=== PATIENT | female | born 1955 | race Caucasian/White ===

== ENCOUNTER 2016-12-04 09:51 | Emergency (ER) | payer OTHER ==
[~2016-12-04] VITALS: Ht 154.9 cm; Wt 132.4 kg
[~2016-12-04 09:51] MED LIST: ADVAIR HFA 230/1 AER INH; ALAVERT10 MG PO; B/P; CETIRIZINE HCL10 MG PO; CIPRO500 MG PO; CITALOPRAM20 MG PO; CLARITIN10 MG PO; DELTASONE10 MG PO; DOXYCYCLINE100 M3 PO; Flovent 220 M220 MCG INH; GLUCOPHAGE1000 MG PO; HUMULIN 70/30 703 M1 SC; HYDROCODONE BIT1 T11 PO; INSULIN; LANTUS100 U/ML SC; LASIX40 MG PO; LEVAQUIN750 M1 PO; LEVOTHROID0.1 MG PO; LEVOTHYROXINE; LEVOTHYROXINE0.15 M1 PO; LISINOPRIL20 MG PO; METFORMIN HCL500 M1 PO; MUCINEX DM 30 M1 TE1 PO; MUCINEX DM 30 M1 TER PO; NORCO 325 MG-51 TAB PO; NOVOLIN 701 UNIT/0.0 SC; PREDNISONE50 MG PO; ROCEPHIN1 GM/50 M1 IV; SIMVASTATIN40 MG PO; VENTOLIN H0.09 MG/AC INH; VICODIN 5/500 505 MG PO; VITAMIN D5000 I3 PO; VITAMIN D50000 I2 PO
[2016-12-04 09:58] VITALS: BP 135/75
[2016-12-04 10:20] LABS: BILIRUBIN NEGATIVE (NEGATIVE); BLOOD 1+ (NEGATIVE); CLARITY CLOUDY (CLEAR); COLOR YELLOW (YELLOW); GLUCOSE NEGATIVE (NEGATIVE); KETONE NEGATIVE (NEGATIVE); NITRITE POSITIVE (NEGATIVE); PH 5.5 (5.0-9.0); PROTEIN NEGATIVE (NEGATIVE); UROBILINOGEN 0.2 E.U./dl (0.2-1.0)
[2016-12-04 10:32] LABS: LEUKO ESTERASE 3+ (NEGATIVE)
[2016-12-04 10:33] LABS: BACTERIA 3+; EPITHELIAL CELLS 15-20; URINE REFLEX COMMENT YES (NO); WBC 41-50 wbc/hpf (0-5)
[2016-12-04 10:53] LABS: BASO % 0.3 % (0.0-1.0); EOS # 0.2 10*3/uL (0.0-0.4); EOS % 2.3 % (1.0-4.0); HEMATOCRIT 41.3 % (37.0-47.0); HEMOGLOBIN 13.5 g/dl (12.0-16.0); LYMPH # 2.6 10*3/uL (1.3-4.4); LYMPH % 33.3 % (27.0-41.0); MEAN CORPUSCULAR HGB 28.1 pg (27.0-31.0); MEAN CORPUSCULAR HGB CONC 32.7 g/dl (33.0-37.0); MEAN PLATELET VOLUME 10.4 fl (9.6-12.3); MONO # 1.1 10*3/uL (0.1-1.0); MONO % 13.3 % (3.0-9.0); NEUT % 50.7 % (47.0-73.0); PLATELET COUNT AUTOMATED 225 10*3/uL (130-400); RED CELL DISTRI WIDTH 13.3 % (0-14.5); WHITE BLOOD COUNT 7.9 10*3/uL (4.8-10.8)
[2016-12-04 11:07] LABS: ALBUMIN 3.2 gm/dl (3.1-4.5); BILIRUBIN, TOTAL 0.5 mg/dl (0.2-1.0); POTASSIUM 4.5 mmol/L (3.5-5.1); TOTAL PROTEIN 7.4 gm/dL (6.4-8.2)
[2016-12-04] MEDS ORDERED: MIRALAX17 GM PO (12:31)
[2016-12-04] MEDS ORDERED: RELISTOR150 MG PO (12:31)
[2016-12-04] MEDS ORDERED: CITRATE OF1.75 GM/31 PO (12:54)
[2017-01-26] MEDS ORDERED: MACROBID100 M1 PO (23:11)
[2017-01-26] MEDS ORDERED: PYRIDIUM200 M1 PO (23:15)
== END 2016-12-04 12:35 | disposition home or self-care (01) ==
LOC: ED 09:51
PROVIDERS: Emergency Medicine; Student in an Organized Health Care Education/Training Program
DX: N39.0 Urinary tract infection, site not specified (principal); K59.00 Constipation, unspecified; N18.3 Chronic kidney disease, stage 3 (moderate); J44.9 Chronic obstructive pulmonary disease, unspecified; E11.9 Type 2 diabetes mellitus without complications; Z88.0 Allergy status to penicillin

== ENCOUNTER 2017-06-24 22:09 | Emergency (ER) | payer OTHER ==
[~2017-06-24] VITALS: Ht 154.9 cm; Wt 81.6 kg
[~2017-06-24 22:09] MED LIST changes: +CITRATE OF1.75 GM/31 PO; +MACROBID100 M1 PO; +MIRALAX17 GM PO; +PYRIDIUM200 M1 PO; +RELISTOR150 MG PO; +VICODIN 5-3001 EACH PO
[2017-06-24 22:12] VITALS: BP 155/71
== END 2017-06-25 02:27 | disposition home or self-care (01) ==
LOC: ED 22:09
DX: S93.402A Sprain of unspecified ligament of left ankle, initial encounter (principal); M77.52 Other enthesopathy of left foot and ankle; E11.22 Type 2 diabetes mellitus with diabetic chronic kidney disease; N18.3 Chronic kidney disease, stage 3 (moderate); J44.9 Chronic obstructive pulmonary disease, unspecified; Z88.0 Allergy status to penicillin; Z79.899 Other long term (current) drug therapy; X58.XXXA Exposure to other specified factors, initial encounter; Y93.E5 Activity, floor mopping and cleaning; Y92.009 Unspecified place in unspecified non-institutional (private) residence as the place of occurrence of the external cause; Y99.8 Other external cause status

== ENCOUNTER → 2017-09-11 | Outpatient (CLI) | payer OTHER | END | disposition home or self-care (01) | LOC: MAMMO 03:05 | DX: Z12.31 Encounter for screening mammogram for malignant neoplasm of breast (principal) ==

== ENCOUNTER → 2017-10-02 | Outpatient (CLI) | payer OTHER | LOC: MAMMO 00:43 | DX: N63.21 Unspecified lump in the left breast, upper outer quadrant (principal) ==

== ENCOUNTER 2018-08-07 20:18 | Emergency (ER) | payer OTHER ==
[~2018-08-07] VITALS: Ht 154.9 cm; Wt 122.9 kg
[2018-08-07 20:21] VITALS: BP 154/65
[2018-08-07] MEDS ORDERED: Motrin,Rufen800 MG PO (22:17)
== END 2018-08-07 22:19 | disposition home or self-care (01) ==
LOC: ED 20:18
DX: M25.562 Pain in left knee (principal); M17.12 Unilateral primary osteoarthritis, left knee; F17.200 Nicotine dependence, unspecified, uncomplicated; Z88.0 Allergy status to penicillin; Z79.899 Other long term (current) drug therapy

== ENCOUNTER 2018-12-15 07:11 | Emergency (ER) | payer OTHER ==
[~2018-12-15] VITALS: Ht 154.9 cm; Wt 123.4 kg
[~2018-12-15 07:11] MED LIST changes: +Motrin,Rufen800 MG PO
[2018-12-15 07:40] LABS: BASO % 0.2 % (0.0-1.0); EOS # 0.2 10*3/uL (0.0-0.4); HEMATOCRIT 46.4 % (37.0-47.0); HEMOGLOBIN 14.9 g/dl (12.0-16.0); LYMPH % 33.5 % (27.0-41.0); MEAN CELL VOLUME 86.2 fl (81.0-99.0); MEAN CORPUSCULAR HGB 27.7 pg (27.0-31.0); MEAN CORPUSCULAR HGB CONC 32.1 g/dl (33.0-37.0); MONO # 1.1 10*3/uL (0.1-1.0); MONO % 11.7 % (3.0-9.0); NEUT # 4.7 10*3/uL (2.3-7.9); NEUT % 52.3 % (47.0-73.0); PLATELET COUNT AUTOMATED 224 10*3/uL (130-400); RED BLOOD COUNT 5.38 10*6/uL (4.10-5.10); RED CELL DISTRI WIDTH 14.1 % (0-14.5)
[2018-12-15 07:54] LABS: ALBUMIN 3.3 gm/dl (3.1-4.5); CREATININE 1.67 mg/dL (0.55-1.02); POTASSIUM 4.9 mmol/L (3.5-5.1); TOTAL PROTEIN 7.8 gm/dL (6.4-8.2)
[2018-12-15 09:30] VITALS: BP 138/60
== END 2018-12-15 09:24 | disposition home or self-care (01) ==
LOC: ED 07:11
PROVIDERS: Emergency Medicine
DX: S89.91XA Unspecified injury of right lower leg, initial encounter (principal); M47.896 Other spondylosis, lumbar region; I12.9 Hypertensive chronic kidney disease with stage 1 through stage 4 chronic kidney disease, or unspecified chronic kidney disease; E11.22 Type 2 diabetes mellitus with diabetic chronic kidney disease; N18.3 Chronic kidney disease, stage 3 (moderate); J44.9 Chronic obstructive pulmonary disease, unspecified; M19.90 Unspecified osteoarthritis, unspecified site; Z88.0 Allergy status to penicillin; Z79.899 Other long term (current) drug therapy; X50.1XXA Overexertion from prolonged static or awkward postures, initial encounter; Y93.89 Activity, other specified; Y92.89 Other specified places as the place of occurrence of the external cause; Y99.8 Other external cause status

== ENCOUNTER → 2019-01-21 | Outpatient (CLI) | payer OTHER | END | disposition home or self-care (01) | LOC: CT 01-16 14:00 | DX: M17.11 Unilateral primary osteoarthritis, right knee (principal) ==

== ENCOUNTER 2019-12-24 07:08 | Inpatient (IN) | payer OTHER ==
[2019-12-24] VITALS (7 sets, daily range): BP systolic 130–163; BP diastolic 77–95
[~2019-12-24] VITALS: Ht 154.9 cm; Wt 123.8 kg
[2019-12-24 07:43] LABS: BASO % 0.3 % (0.0-1.0); EOS # 0.2 10*3/uL (0.0-0.4); EOS % 1.9 % (1.0-4.0); HEMATOCRIT 44.1 % (37.0-47.0); HEMOGLOBIN 13.3 g/dl (12.0-16.0); LYMPH # 2.7 10*3/uL (1.3-4.4); LYMPH % 22.9 % (27.0-41.0); MEAN CELL VOLUME 86.3 fl (81.0-99.0); MEAN CORPUSCULAR HGB CONC 30.2 g/dl (33.0-37.0); MEAN PLATELET VOLUME 12.5 fl (9.6-12.3); MONO # 0.9 10*3/uL (0.1-1.0); MONO % 7.8 % (3.0-9.0); NEUT % 66.8 % (47.0-73.0); PLATELET COUNT AUTOMATED 236 10*3/uL (130-400); RED BLOOD COUNT 5.11 10*6/uL (4.10-5.10); RED CELL DISTRI WIDTH 14.2 % (0-14.5)
--- NOTE | 2019-12-24 07:59 | NUR ---
RESTIGN IN BED QUIETLY. APPEARS MORE COMFORTABLE. BROTHER PRESENT.
[2019-12-24 08:42] LABS: ACT PARTIAL THROMBO TIME 26.2 SECONDS (20.0-32.1); INTERNATIONAL NORM RATIO 1.1 (2.0-3.5)
--- NOTE | 2019-12-24 08:47 | NUR ---
LYING IN BED SEMI FOWLERS, RESPS EASY. NON LABORED. EYES CLOSED.
[2019-12-24 08:54] LABS: ALBUMIN 2.9 gm/dl (3.1-4.5); ALKALINE PHOSPHATASE 83 U/L (45-117); BUN 16 mg/dl (7-24); CHLORIDE 99 mmol/L (98-107); CREATININE 1.08 mg/dL (0.55-1.02); POTASSIUM 4.2 mmol/L (3.5-5.1); SGOT/AST 13 IU/L (3-35); SGPT/ALT 18 U/L (12-78); SODIUM 138 mmol/L (136-145)
--- NOTE | 2019-12-24 09:12 | NUR ---
COMPLAINS OF CHEST TIGHTNESS, EKG ORDERED, DR SELLERS AWARE.
[2019-12-24 09:25] LABS: TROPONIN I < 0.015 ng/ml (<0.045)
--- NOTE | 2019-12-24 09:51 | NUR ---
PT TO CT AT THIS TIME.
[2019-12-24 10:15] LABS: THYROID STIM HORMONE (HS) 3.67 uIU/ml (0.358-4.75)
--- NOTE | 2019-12-24 10:59 | NUR ---
TO US AT THIS TIME.
--- NOTE | 2019-12-24 11:44 | NUR ---
BACK TO ROOM FROM US
--- NOTE | 2019-12-24 12:00 | NUR ---
Time: 1200 A 64 year old FEMALE admitted to 4E under services of DR. ALINE KIRKLAND,HELEN. Pt. arrived via wheel chair from ER. Chief complaint: SOB, CHF. HELEN OSBORNE
[2019-12-24] MEDS ORDERED: LISINOPRIL20 MG PO (13:20)
[2019-12-24] MEDS ORDERED: ALBUTEROL S5 MG/1 ML IH (13:21)
[2019-12-24] MEDS ORDERED: LASIX40 MG PO (13:23)
[2019-12-24] MEDS ORDERED: DOXEPIN HCL10 MG PO (13:23)
--- NOTE | 2019-12-24 20:00 | NUR ---
PT SITTING UP ON SIDE OF BED, A&O, PLEASANT AND COOPERATIVE. RESP NONLABORED. NO ACUTE DISTRESS NOTED. NO COMLAINTS VOICED. HEPLOCK PATENT. NO S/S OF HYPU/HYPERGLYCEMIA NOTED.
[2019-12-25] VITALS: BP 160/89
[2019-12-25 06:02] LABS: BASO % 0.1 % (0.0-1.0); EOS # 0.2 10*3/uL (0.0-0.4); HEMOGLOBIN 13.8 g/dl (12.0-16.0); LYMPH # 1.3 10*3/uL (1.3-4.4); LYMPH % 13.1 % (27.0-41.0); MEAN CORPUSCULAR HGB 25.8 pg (27.0-31.0); MEAN PLATELET VOLUME 11.1 fl (9.6-12.3); MONO # 0.3 10*3/uL (0.1-1.0); MONO % 3.1 % (3.0-9.0); NEUT # 7.8 10*3/uL (2.3-7.9); NEUT % 81.4 % (47.0-73.0); PLATELET COUNT AUTOMATED 203 10*3/uL (130-400); RED BLOOD COUNT 5.35 10*6/uL (4.10-5.10); RED CELL DISTRI WIDTH 13.9 % (0-14.5); WHITE BLOOD COUNT 9.6 10*3/uL (4.8-10.8)
[2019-12-25 06:08] LABS: ALBUMIN 2.9 gm/dl (3.1-4.5); CREATININE 1.23 mg/dL (0.55-1.02); FREE T4 0.96 ng/dl (0.76-1.46); PHOSPHOROUS 4.2 mg/dL (2.5-4.9); POTASSIUM 4.5 mmol/L (3.5-5.1); TOTAL PROTEIN 7.4 gm/dL (6.4-8.2)
[2019-12-25 06:12] LABS: THYROID STIM HORMONE (HS) 1.01 uIU/ml (0.358-4.75)
[2019-12-25 06:34] LABS: ACT PARTIAL THROMBO TIME 26.5 SECONDS (20.0-32.1)
--- NOTE | 2019-12-25 07:58 | NUR ---
TYLENOL GIVEN FOR C/O HEADACHE. RATES 10/10 ON PAIN SCALE. WILL MONITOR.
[2019-12-25 08:00] VITALS: BP 148/86
--- NOTE | 2019-12-25 08:30 | NUR ---
Metal Model Builder in to talk to patient. Patient states lives at home with her daughter. There are 5 steps in the home. Physician: Dr. Bower [facility] Home health services: none Patient's level of ADLs: INDEPENDENT Patient has working utilities: yes DME: O2 @ 2-3 L nc at HS, wants a neb nebulizer (Dr. Santoro notified), O2 supplier unknown Follow-up physician's appointment after d/c: she prefers to make her own follow up appt after discharge Does patient want to access PORTAL?: no Discharge plan discussed with patient. She lives at home with her daughter. She is independent in her ADLs and ambulation. Discussed home health care services and she denies any home needs at this time. When medically stable she will be discharged to home. She states her brother or her daughter will provide transportation on discharge. GABBIE DUNNE
--- NOTE | 2019-12-25 09:00 | NUR ---
TYLENOL EFFECTIVE PER PT.
--- NOTE | 2019-12-25 10:12 | NUR ---
ONE TIME DOSE OF ATIVAN TO BE GIVEN BEFORE V-Q SCAN
[2019-12-25 12:00] VITALS: BP 126/46
[2019-12-25 16:00] VITALS: BP 149/78
[2019-12-25 20:00] VITALS: BP 157/81
--- NOTE | 2019-12-25 20:30 | NUR ---
PT SITTING UP AT SIDE OF BED. RESP-EASY AND REGULAR. OXYGEN IN USE. NO C/O AT THIS TIME. DISCOLORATION BLE. CALL LIGHT IN REACH. SEE SHIFT ASSESSMENT.
--- NOTE | 2019-12-25 23:00 | NUR ---
ASSUMED CARE FOR THIS PT AT THIS TIME. PT SITTING ON SIDE OF BED. PT C/O BEING HUNGRY. SNACKS OFFERED AND ACCEPTED. DENIES SOB/PAIN. CALL LIGHT IN REACH.
[2019-12-26] VITALS: BP 156/76
[2019-12-26 07:22] LABS: BASO % 0.1 % (0.0-1.0); EOS % 0.1 % (1.0-4.0); HEMATOCRIT 44.7 % (37.0-47.0); HEMOGLOBIN 13.2 g/dl (12.0-16.0); LYMPH # 2.6 10*3/uL (1.3-4.4); LYMPH % 17.2 % (27.0-41.0); MEAN CELL VOLUME 86.3 fl (81.0-99.0); MEAN CORPUSCULAR HGB 25.5 pg (27.0-31.0); MEAN CORPUSCULAR HGB CONC 29.5 g/dl (33.0-37.0); MEAN PLATELET VOLUME 11.5 fl (9.6-12.3); MONO # 1.2 10*3/uL (0.1-1.0); MONO % 7.7 % (3.0-9.0); NEUT # 11.2 10*3/uL (2.3-7.9); NEUT % 74.5 % (47.0-73.0); PLATELET COUNT AUTOMATED 213 10*3/uL (130-400); RED BLOOD COUNT 5.18 10*6/uL (4.10-5.10); RED CELL DISTRI WIDTH 13.6 % (0-14.5)
[2019-12-26 07:29] LABS: ACT PARTIAL THROMBO TIME 25.6 SECONDS (20.0-32.1)
[2019-12-26 07:32] LABS: CREATININE 1.4 mg/dL (0.55-1.02); POTASSIUM 4.5 mmol/L (3.5-5.1)
[2019-12-26 08:00] VITALS: BP 159/79
[2019-12-26 11:02] LABS: ABG BASE EXCESS 10.1 mmol/L (-2.0-2.0); ARTERIAL BLOOD GAS PH 7.317 (7.35-7.45)
--- NOTE | 2019-12-26 11:29 | NUR ---
DR. ALEXANDER NOTIFIED OF CONSULT.
[2019-12-26 12:00] VITALS: BP 132/96
[2019-12-26 14:12] LABS: ABG BASE EXCESS 10.3 mmol/L (-2.0-2.0); ARTERIAL BLOOD GAS PH 7.37 (7.35-7.45)
[2019-12-26 16:00] VITALS: BP 129/48
--- NOTE | 2019-12-26 19:40 | NUR ---
TOOK OVER CARE OF PT. PT SITTING UP ON SIDE OF BED. ALERT ORIENTED AND PLEASANT MOOD. ASSESSMENT IS COMPLETE AT THIS TIME. RESPIRATIONS UNLABORED. NO S/S OF DISTRESS. CALL LIGHT IN REACH.
[2019-12-26 20:00] VITALS: BP 121/95
[2019-12-26 23:17] VITALS: BP 142/70
--- NOTE | 2019-12-26 23:44 | NUR ---
SHAUNNAX GIVEN PER PT REQUEST FOR C/O ANXIETY. CALL LIGHT IN REACH.
[2019-12-27] VITALS: BP 113/70
--- NOTE | 2019-12-27 00:44 | NUR ---
XANAX EFFECTIVE PER PT.
[2019-12-27 05:50] LABS: CREATININE 1.51 mg/dL (0.55-1.02); POTASSIUM 4.9 mmol/L (3.5-5.1)
--- NOTE | 2019-12-27 06:15 | NUR ---
Hep Lock discontinued, RICARDO. Site symptomatic, OCCLUDED. Pressure applied. Sterile dressing applied. STEPHON DECKER
--- NOTE | 2019-12-27 06:20 | NUR ---
IV started right arm with #22 protective cath after 0 attempts. Site prepped with Chloroprep. Sterile dressing applied. Patient tolerated procedure well. STEPHON DECKER
--- NOTE | 2019-12-27 06:50 | NUR ---
PT AWAKE, ALERT. PLEASANT MOOD. BLOOD SUGAR 331, PT COVERED WITH 15 UNITS PER S/S ON EMAR. WILL CONTINUE TO MONITOR. CALL LIGHT IN REACH.
[2019-12-27 08:00] VITALS: BP 130/69
--- NOTE | 2019-12-27 08:12 | NUR ---
PT RESTING IN BED/ NO DISTRESS NOTED. NO VOICED C/O. WILL MONITOR
[2019-12-27 12:00] VITALS: BP 146/62
--- NOTE | 2019-12-27 13:19 | NUR ---
PT REQUESTED AND GIVEN TYLENOL FOR C/O HEADACHE WILL MONITOR
--- NOTE | 2019-12-27 15:00 | NUR ---
PT STATES TYLENOL HELPED WILL MONITOR
[2019-12-27 16:00] VITALS: BP 146/55
[2019-12-27 20:00] VITALS: BP 147/60
--- NOTE | 2019-12-27 22:39 | NUR ---
PRN XANAX GIVEN FOR PT COMPLAINTS OF ANXIETY GOING ON BIPAP. CALL LIGHT WITHIN REACH, WILL MONITOR
[2019-12-28] VITALS: BP 154/76
--- NOTE | 2019-12-28 | NUR ---
PRN MEDICATION APPEARS EFFECTIVE, PT SLEEPING
--- NOTE | 2019-12-28 01:39 | NUR ---
24 HR chart check completed.
--- NOTE | 2019-12-28 02:35 | NUR ---
PATIENT UP AT THIS TIME. OFF THE BIPAP. STATED SHE HAD A BAD DREAM THAT SHE COULDN'T BREATH AND THEN WHEN SHE WOKE UP SHE STARTED COUGHING AND COULDN'T GET IT UP BECAUSE OF THE BIPAP. PATIENT REMOVED OFF BIPAP AND PLACED BACK ON NASAL CANNULA. SHE STATED SHE'LL CALL WHEN SHE WANTS TO GO BACK ON.
--- NOTE | 2019-12-28 02:56 | NUR ---
PATIENT BACK ON BIPAP AT THIS TIME
[2019-12-28 07:44] LABS: ABG BASE EXCESS 4.9 mmol/L (-2.0-2.0); ARTERIAL BLOOD GAS PH 7.322 (7.35-7.45)
[2019-12-28 08:00] VITALS: BP 156/68
--- NOTE | 2019-12-28 08:40 | NUR ---
DR ALEXANDER NOTIFIED OF GS
--- NOTE | 2019-12-28 08:47 | NUR ---
PT RESTING IN BED. NO DISTRESS NOTED. WILL MONITOR
--- NOTE | 2019-12-28 09:00 | NUR ---
Information Developer in to see patient. She is currently on bipap. Will follow back up at a later time.
--- NOTE | 2019-12-28 10:30 | NUR ---
Asked Dr. Serrato if patient will need a bipap at home on discharge. Awaiting response.
[2019-12-28 12:00] VITALS: BP 152/66
--- NOTE | 2019-12-28 15:27 | NUR ---
Instrumentation Chemist in to see patient. Discussed trilogy at home. She states she slept with a machine previously but it was old and she lost it with her house. She states she needs a new nebulizer also. Dr. Serrato notified.
[2019-12-28 15:46] LABS: VITAMIN D, 25-HYDROXY 19.5 ng/mL (30-100)
[2019-12-28 16:00] VITALS: BP 151/82
[2019-12-28 16:02] VITALS: BP 105/71
--- NOTE | 2019-12-28 17:14 | NUR ---
PT RESTING IN BED NO DISTRESS NOTED. WILL MONITOR
[2019-12-28 20:00] VITALS: BP 150/59
--- NOTE | 2019-12-28 20:09 | NUR ---
PATIENT ON BIPAP. SLEEPING BUT AROUSES EASILY. NO COMPLAINTS AT THIS TIME. NO DISTRESS NOTED. CALL LIGHT WITHIN REACH, WILL MONITOR
[2019-12-29] VITALS: BP 166/74
--- NOTE | 2019-12-29 01:43 | NUR ---
PATIENT REMOVED FROM BIPAP AT THIS TIME PER REQUEST
--- NOTE | 2019-12-29 04:29 | NUR ---
24 HR chart check completed.
--- NOTE | 2019-12-29 05:13 | NUR ---
PATIENT PROVIDED TANK OF OXYGEN. REQUESTING TO WALK AROUND. PATIENT AMBULATING IN HALLWAY AT THIS TIME
--- NOTE | 2019-12-29 07:11 | NUR ---
PT NOT ON BIPAP AT THIS TIME
[2019-12-29 07:18] LABS: BASO % 0.1 % (0.0-1.0); EOS # 0.1 10*3/uL (0.0-0.4); EOS % 0.3 % (1.0-4.0); HEMATOCRIT 44.7 % (37.0-47.0); HEMOGLOBIN 13.3 g/dl (12.0-16.0); LYMPH # 2.1 10*3/uL (1.3-4.4); LYMPH % 13.4 % (27.0-41.0); MEAN CORPUSCULAR HGB 25.6 pg (27.0-31.0); MEAN CORPUSCULAR HGB CONC 29.8 g/dl (33.0-37.0); MEAN PLATELET VOLUME 11.4 fl (9.6-12.3); MONO # 1.3 10*3/uL (0.1-1.0); MONO % 8.3 % (3.0-9.0); NEUT # 12.4 10*3/uL (2.3-7.9); NEUT % 77.6 % (47.0-73.0); PLATELET COUNT AUTOMATED 207 10*3/uL (130-400); RED CELL DISTRI WIDTH 14.2 % (0-14.5)
[2019-12-29 07:44] LABS: CREATININE 1.22 mg/dL (0.55-1.02); POTASSIUM 4.8 mmol/L (3.5-5.1)
[2019-12-29 08:00] VITALS: BP 130/60
--- NOTE | 2019-12-29 08:00 | NUR ---
Patient resting quietly with no c/o discomfort. Respirations easy and regular. Vital signs stable. No overt distress. ARTHUR BERTRAND
--- NOTE | 2019-12-29 09:00 | NUR ---
Engine Boss in to see patient. No new needs or request at this time. She denies any home needs. Discussed home trilogy and she verbalized an understanding. Discussed documentation requirements and prescriptions needed for trilogy and nebulizer at home with Dr. Serrato. When medically stable she will be discharged to home. She denies any other home needs at this time.
[2019-12-29 11:22] LABS: ABG BASE EXCESS 5.1 mmol/L (-2.0-2.0); ARTERIAL BLOOD GAS PH 7.347 (7.35-7.45)
[2019-12-29 12:00] VITALS: BP 147/85
--- NOTE | 2019-12-29 13:18 | NUR ---
PT PLACED ON BIPAP AT THIS TIME PER RN
--- NOTE | 2019-12-29 14:45 | NUR ---
TOOK PT OFF BIPAP PER PT REQUEST
[2019-12-29 16:00] VITALS: BP 148/64
[2019-12-29 20:00] VITALS: BP 157/65
--- NOTE | 2019-12-29 20:39 | NUR ---
PT. GIVEN NORCO FOR ABD PAIN AND GENERALIZED ACHES AND PAINS AT 2012, PT. STATES MINIMALLY EFFECTIVE. SONIA LYNN RN
--- NOTE | 2019-12-29 21:17 | NUR ---
ZOFRAN GIVEN ORDERED FOR COMPLAINTS OF NAUSEA AND SMALL EMESIS. SONIA LYNN RN
--- NOTE | 2019-12-29 21:36 | NUR ---
PT. STATES ZOFRAN EFFECTIVE FOR NAUSEA
--- NOTE | 2019-12-29 23:41 | NUR ---
PATIENT REFUSED BIPAP AT THIS TIME, SATES MAYBE LATER
[2019-12-30] VITALS: BP 144/41
--- NOTE | 2019-12-30 05:05 | NUR ---
PT'S AM GLUC 62, REPEAT 63, APPLE JUICE (PT. PREFERENCE) WITH PACKET OF SUGAR AND AMISHA CRACKERS GIVEN. PT. ASYMPT. AROUSES EASILY, W/D. SONIA LYNN RN
[2019-12-30 07:04] LABS: HEMATOCRIT 46.6 % (37.0-47.0); HEMOGLOBIN 13.7 g/dl (12.0-16.0); MEAN CELL VOLUME 85.7 fl (81.0-99.0); MEAN CORPUSCULAR HGB 25.2 pg (27.0-31.0); MEAN CORPUSCULAR HGB CONC 29.4 g/dl (33.0-37.0); MEAN PLATELET VOLUME 11.2 fl (9.6-12.3); PLATELET COUNT AUTOMATED 219 10*3/uL (130-400); RED BLOOD COUNT 5.44 10*6/uL (4.10-5.10); RED CELL DISTRI WIDTH 14.3 % (0-14.5); WHITE BLOOD COUNT 18.3 10*3/uL (4.8-10.8)
[2019-12-30 07:15] LABS: CREATININE 1.18 mg/dL (0.55-1.02); POTASSIUM 4.7 mmol/L (3.5-5.1)
[2019-12-30 07:32] LABS: PLATELET SUFFICIENCY NORMAL (NORMAL); TOTAL CELLS COUNTED 100 #CELLS
[2019-12-30 08:00] VITALS: BP 132/76
[2019-12-30 08:07] LABS: ABG BASE EXCESS 4.7 mmol/L (-2.0-2.0); ARTERIAL BLOOD GAS PH 7.245 (7.35-7.45)
--- NOTE | 2019-12-30 08:53 | NUR ---
MEDICATED WITH IV ZOFRAN AND PO XANAX ORDERED PER PT REQUEST FOR C/O NAUSEA AND ANXIETY.
[2019-12-30 12:00] VITALS: BP 165/67
--- NOTE | 2019-12-30 12:00 | NUR ---
MEDICATIONS EFFECTIVE.
[2019-12-30 16:00] VITALS: BP 168/60
--- NOTE | 2019-12-30 16:03 | NUR ---
DAUGHTER ITA AWARE THAT PT WILL BE MOVING TO 425.
[2019-12-30 20:00] VITALS: BP 173/63
--- NOTE | 2019-12-30 21:30 | NUR ---
PATIENT ANXIOUS, C/O NAUSEA. MEDICATED AT THIS TIME WITH AN XANEX AND ZOFRAN. WILL CHECK EFFECTIVENESS.
[2019-12-31] VITALS: BP 155/68
--- NOTE | 2019-12-31 03:57 | NUR ---
PATIENT C/O ABDOMINAL PAIN. RATES 4/5. REFUSING TO TAKE TYLENOL, NORCO, OR MORPHINE. GIVEN ZOFRAN AND A DULCOLAX PER REQUEST.
[2019-12-31 06:20] LABS: HEMATOCRIT 45.4 % (37.0-47.0); HEMOGLOBIN 13.4 g/dl (12.0-16.0); MEAN CELL VOLUME 87.3 fl (81.0-99.0); MEAN CORPUSCULAR HGB 25.8 pg (27.0-31.0); MEAN CORPUSCULAR HGB CONC 29.5 g/dl (33.0-37.0); MEAN PLATELET VOLUME 11.9 fl (9.6-12.3); PLATELET COUNT AUTOMATED 175 10*3/uL (130-400); RED CELL DISTRI WIDTH 14.2 % (0-14.5); WHITE BLOOD COUNT 18.7 10*3/uL (4.8-10.8)
[2019-12-31 06:35] LABS: BUN 43 mg/dl (7-24); CHLORIDE 102 mmol/L (98-107); CREATININE 1.04 mg/dL (0.55-1.02); SODIUM 138 mmol/L (136-145)
[2019-12-31 07:11] LABS: TOTAL CELLS COUNTED 100 #CELLS
[2019-12-31 07:12] LABS: PLATELET SUFFICIENCY NORMAL (NORMAL)
[2019-12-31 08:00] VITALS: BP 134/62
--- NOTE | 2019-12-31 09:00 | NUR ---
Assistant Golf Coach in to see patient. No new needs or request at this time. She denies any home needs. When medically stable she will be discharged to home.
--- NOTE | 2019-12-31 10:30 | NUR ---
Per multidisciplinary discharge planning meeting patient does not qualify for home bipap. Dr. Serrato aware. Per director of infection control she would need to have a sleep study.
[2019-12-31 12:00] VITALS: BP 146/52
[2019-12-31 16:00] VITALS: BP 173/70
--- NOTE | 2019-12-31 19:20 | NUR ---
Pt refused her breathing tx at this time due to nausea. Pt also refused her BIPap at this time due to nausea. Will check back later.
[2019-12-31 20:00] VITALS: BP 163/71
--- NOTE | 2019-12-31 20:46 | NUR ---
24 HR chart check completed.
--- NOTE | 2019-12-31 21:00 | NUR ---
SLEEPING. NO DISTRESS NOTED. RESPIRATIONS EASY. LUNGS DIMINISHED. PULSE OX 98% 3L. ABD SOFT WITH NORMO BS, C/O CONSTIPATION DESPITE HAVING BM 12/31. CALL LIGHT WITHIN REACH.
--- NOTE | 2019-12-31 22:41 | NUR ---
MEDICATED WITH DULCOLAX SUPPOSITORY AND MOM FOR C/O CONSITPATION. WILL MONITOR
[2020-01-01] VITALS: BP 174/69
--- NOTE | 2020-01-01 00:20 | NUR ---
Pt stated she still wasnt ready to go on the Bipap. Stated to give her another hour.
--- NOTE | 2020-01-01 00:30 | NUR ---
SLEEPING. NO DISTRESS NOTED. RESPIRATIONS EASY. VSS. CALL LIGHT WITHIN REACH
--- NOTE | 2020-01-01 03:45 | NUR ---
Pt placed on her BiPap 18/12 and FiO2 35%. Alarms on and audible.
--- NOTE | 2020-01-01 04:00 | NUR ---
SLEEPING WITH BI-PAP IN USE.
--- NOTE | 2020-01-01 04:50 | NUR ---
PATIENT REMOVED BI-PAP. O2 REAPPLIED
--- NOTE | 2020-01-01 06:00 | NUR ---
RESTED THROUGHOUT NIGHT WITH NO ACUTE DISTRESS NOTED. O2 CURRENTLY IN USE VIA NC. STATES LAXATIVES EFFECTIVE FOR MODERATE LOOSE/SOFT STOOL. CALL LIGHT WITHIN REACH.
[2020-01-01 07:20] VITALS: BP 150/50
[2020-01-01 07:32] LABS: BASO % 0.1 % (0.0-1.0); EOS # 0.2 10*3/uL (0.0-0.4); EOS % 1.4 % (1.0-4.0); HEMATOCRIT 43.6 % (37.0-47.0); HEMOGLOBIN 13.1 g/dl (12.0-16.0); LYMPH # 2.3 10*3/uL (1.3-4.4); MEAN CELL VOLUME 85.8 fl (81.0-99.0); MEAN CORPUSCULAR HGB 25.8 pg (27.0-31.0); MEAN PLATELET VOLUME 11.5 fl (9.6-12.3); MONO # 1.2 10*3/uL (0.1-1.0); MONO % 8.1 % (3.0-9.0); NEUT # 10.8 10*3/uL (2.3-7.9); PLATELET COUNT AUTOMATED 182 10*3/uL (130-400); RED BLOOD COUNT 5.08 10*6/uL (4.10-5.10); RED CELL DISTRI WIDTH 13.9 % (0-14.5); WHITE BLOOD COUNT 14.6 10*3/uL (4.8-10.8)
[2020-01-01 07:51] LABS: CHLORIDE 97 mmol/L (98-107); CREATININE 0.91 mg/dL (0.55-1.02); POTASSIUM 4.9 mmol/L (3.5-5.1); SODIUM 135 mmol/L (136-145)
[2020-01-01 07:53] LABS: BUN 29 mg/dl (7-24)
--- NOTE | 2020-01-01 08:18 | NUR ---
PT. DOES NOT WANT TO WEAR BIPAP AT THIS TIME, STATES SHE IS SICK TO HER STOMACH.
--- NOTE | 2020-01-01 08:19 | NUR ---
ASSESSMENT COMPLETED AND DOC'D. PT RESTING IN BED. NO C/O PAIN AT THIS TIME. RACHEL ASHLEY SPODETTECC
--- NOTE | 2020-01-01 09:00 | NUR ---
Cow Puncher in to see patient. She is sitting on the edge of her bed without distress noted. Discussed short term SNF and she refuses. Discussed home health care services and she denies any home needs as she lives with one daughter and the other daughter and 18 yo grandson are about 5 minutes away. Requested and given living will and HPOA paperwork. Dr. Carmichael in to see patient. Dr. Carmichael discussed with patient about her insurance not approving the home bipap and that she will need a sleep study. She states she has had a sleep study in the past and a home c-pap but didn't use it. Discussed discharge planning with Dr. Serrato.
--- NOTE | 2020-01-01 10:11 | NUR ---
ASSESSMENT DOCUMENTATION COMPLETED. PT SITTING ON SIDE OF BED EATING BREAKFAST. NO S/S OF DISTRESS AT THIS TIME. RACHEL ASHLEY SPNRCC
[2020-01-01 12:00] VITALS: BP 145/70
--- NOTE | 2020-01-01 12:00 | NUR ---
ASSESSMENT DOCUMENTATION COMPLETED. NO S/S OF DISTRESS. PT UP IN CHAIR EATING LUNCH. RACHEL ASHLEY SPNRCC
--- NOTE | 2020-01-01 12:46 | NUR ---
PT ASSESSED FOR HOME O2: SPO2 RA AMBULATING: SPO2 74% PT OFF O2FOR SHOWER. SPO2 RA AT REST: 85% SPO2 AMBULATING ON 2 L NC: 86% SPO2 AMBULATING ON 3 L NC: 87% SPO2 AMBULATING ON 4 L NC: 88% SPO2 AMBULATING ON 5 L NC: 91% PT REQUIRES 5 L NC WITH AMBULATION AND 2 L NC AT REST.
--- NOTE | 2020-01-01 13:27 | NUR ---
PT RESTING IN BED WAITING FOR RESP TO PUT THE BI PAP ON. NO S/S OF DISTRESS OR C/O PAIN. REPORT GIVEN TO DORIAN RYDER
[2020-01-01 16:00] VITALS: BP 161/82
--- NOTE | 2020-01-01 17:18 | NUR ---
17:00 NOTE REGARDING HOME O2 TANK DELIVERY. PT TO BE DISCHARGED 01/02. CONTACTED MEDICAL SERVICES AT [phone]. I WAS TOLD BY MEDICAL SERVICES, BECAUSE PT IS ALREADY A PT OF THEIRS, THEY DO NOT REQUIRE THE STANDARD INFORMATION ( SCRIP FROM , H & P, ASSESSMENT NOTE). REQUESTED FOR TANK TO BE DELIVERED TODAY. CONTACTED BY THE [facility] EMERGENCY MEDICINE NURSE PRACTITIONER / DELIVERYMAN, HE WANTS TO DELIVER THE TANK TOMORROW. HE WILL CALL IN TOMORROW AT APPROX 8 AM TO DETERMINE DELIVERY TIME. THE EMERGENCY MEDICINE NURSE PRACTITIONER LIVES IN [facility].
[2020-01-01 20:00] VITALS: BP 162/78; BP 177/72
--- NOTE | 2020-01-01 21:50 | NUR ---
PATIENT MEDICATED WITH DULCOLAX AND XANAX FOR C/O CONSTIPATION AND AGITATION. WILL MONITOR
--- NOTE | 2020-01-01 22:50 | NUR ---
XANAX EFFECTIVE FOR AGITAITON
[2020-01-02] VITALS: BP 158/76
--- NOTE | 2020-01-02 06:00 | NUR ---
STAT GLUCOSE REFLEX ORDER FOR X2 FINGERSTICK OF 51 AND 44. PATIENT STATED SHE FELT OK, GIVEN 480OZ OF ORANGE JUICE AND PEANUT BUTTER AND AMISHA CRACKERS.
[2020-01-02 06:28] LABS: HEMOGLOBIN 13.9 g/dl (12.0-16.0); MEAN CELL VOLUME 84.3 fl (81.0-99.0); MEAN CORPUSCULAR HGB CONC 30.9 g/dl (33.0-37.0); MEAN PLATELET VOLUME 11.6 fl (9.6-12.3); PLATELET COUNT AUTOMATED 229 10*3/uL (130-400); RED BLOOD COUNT 5.34 10*6/uL (4.10-5.10); WHITE BLOOD COUNT 20.5 10*3/uL (4.8-10.8)
[2020-01-02 06:54] LABS: ALBUMIN 2.8 gm/dl (3.1-4.5); ALKALINE PHOSPHATASE 64 U/L (45-117); BUN 24 mg/dl (7-24); CHLORIDE 95 mmol/L (98-107); CREATININE 0.95 mg/dL (0.55-1.02); POTASSIUM 4.4 mmol/L (3.5-5.1); SGOT/AST 9 IU/L (3-35); SGPT/ALT 28 U/L (12-78); SODIUM 136 mmol/L (136-145); TOTAL PROTEIN 6.9 gm/dL (6.4-8.2)
--- NOTE | 2020-01-02 06:58 | NUR ---
FINGERSTICK BGM OF 68 AT THIS TIME.
--- NOTE | 2020-01-02 07:04 | NUR ---
MADE AWARE OF BGM. STATED TO GIVE DEXTROSE IVF.
[2020-01-02 07:26] LABS: ATYPICAL LYMPHS 1 % (0-0); PLATELET SUFFICIENCY NORMAL (NORMAL); TOTAL CELLS COUNTED 100 #CELLS
[2020-01-02 08:00] VITALS: BP 134/54
[2020-01-02 12:00] VITALS: BP 134/46
--- NOTE | 2020-01-02 12:54 | NUR ---
IV OUT AFTER RED & SLIGHTLY SWOLLEN. WARM COMPRESS THEN ICE PACK APPLIED FOR COMFORT - AWAITING RESTART UNTIL SEEN BY DR MIRELES
--- NOTE | 2020-01-02 14:51 | NUR ---
DR MIRELES AWARE THAT IV OUT & OK TO NOT RESTART SHE MAY GO HOME THIS EVENING.
--- NOTE | 2020-01-02 15:30 | NUR ---
PT RESTING IN BED. VOICES NO CONCERNS AT THIS TIME RESPS EASY AND NON LABORED. NO S/S OF DISTRESS NOTED. VSS. 3L OXYGEN VIA NASAL CANNULA INTACT. WHITE BOARD UPDATED. CALL LIGHT WITHIN REACH.
[2020-01-02] MEDS ORDERED: DOXYCYCLINE100 MG PO (15:34)
[2020-01-02] MEDS ORDERED: PREDNISONE10 MG PO (15:34)
[2020-01-02 16:00] VITALS: BP 158/80
--- NOTE | 2020-01-02 18:43 | NUR ---
The Discharge Plan/Instructions have been completed. Discharge instructions reviewed with patient/family. Patient receptive and verbalizes understanding. Follow-up care arranged. Written instructions given to patient/family. BENJAMIN MORIN
== END 2020-01-02 18:43 | disposition home or self-care (01) | DRG 194 ==
LOC: ED 07:08 → EDHOLD 10:29 → ED 10:29 → EDHOLD 10:57 → 4E 10:57 → EDHOLD 11:29 → 4E 11:39
PROVIDERS: Emergency Medicine; Hospitalist; Internal Medicine Allergy & Immunology; Internal Medicine Critical Care Medicine; ADMIT Internal Medicine
PROC: 5A09357 Assistance with Respiratory Ventilation, Less than 24 Consecutive Hours, Continuous Positive Airway Pressure (ICD-10-PCS; principal; 2019-12-26)
PROC: 5A09357 Assistance with Respiratory Ventilation, Less than 24 Consecutive Hours, Continuous Positive Airway Pressure (ICD-10-PCS; 2019-12-28)
PROC: 5A09357 Assistance with Respiratory Ventilation, Less than 24 Consecutive Hours, Continuous Positive Airway Pressure (ICD-10-PCS; 2019-12-30)
PROC: 5A09357 Assistance with Respiratory Ventilation, Less than 24 Consecutive Hours, Continuous Positive Airway Pressure (ICD-10-PCS; 2019-12-31)
DX: I13.0 Hypertensive heart and chronic kidney disease with heart failure and stage 1 through stage 4 chronic kidney disease, or unspecified chronic kidney disease (principal); J96.22 Acute and chronic respiratory failure with hypercapnia; J96.21 Acute and chronic respiratory failure with hypoxia; E43 Unspecified severe protein-calorie malnutrition; N17.9 Acute kidney failure, unspecified; E87.4 Mixed disorder of acid-base balance; E87.3 Alkalosis; J44.1 Chronic obstructive pulmonary disease with (acute) exacerbation; J44.0 Chronic obstructive pulmonary disease with (acute) lower respiratory infection; K76.0 Fatty (change of) liver, not elsewhere classified; I50.9 Heart failure, unspecified; N18.3 Chronic kidney disease, stage 3 (moderate); E11.22 Type 2 diabetes mellitus with diabetic chronic kidney disease; E11.65 Type 2 diabetes mellitus with hyperglycemia; E66.01 Morbid (severe) obesity due to excess calories; E83.42 Hypomagnesemia; G47.33 Obstructive sleep apnea (adult) (pediatric); F41.1 Generalized anxiety disorder; J45.40 Moderate persistent asthma, uncomplicated; E03.9 Hypothyroidism, unspecified; J98.11 Atelectasis; M46.86 Other specified inflammatory spondylopathies, lumbar region; M17.12 Unilateral primary osteoarthritis, left knee; D72.829 Elevated white blood cell count, unspecified; T38.0X5A Adverse effect of glucocorticoids and synthetic analogues, initial encounter; Y92.238 Other place in hospital as the place of occurrence of the external cause; Z87.01 Personal history of pneumonia (recurrent); Z87.440 Personal history of urinary (tract) infections; Z90.710 Acquired absence of both cervix and uterus; Z82.49 Family history of ischemic heart disease and other diseases of the circulatory system; Z79.4 Long term (current) use of insulin; Z88.0 Allergy status to penicillin; Z79.899 Other long term (current) drug therapy; Z98.51 Tubal ligation status; Z80.3 Family history of malignant neoplasm of breast; Z80.1 Family history of malignant neoplasm of trachea, bronchus and lung; Z68.43 Body mass index [BMI] 50.0-59.9, adult; J18.9 Pneumonia, unspecified organism

== ENCOUNTER → 2021-06-20 | Outpatient (CLI) | payer OTHER ==
[~2021-06-20] MED LIST changes: +ALBUTEROL S5 MG/1 ML IH; +DOXEPIN HCL10 MG PO; +DOXYCYCLINE100 MG PO; +PREDNISONE10 MG PO
[2021-06-20 12:24] LABS: BILIRUBIN Negative (Negative); BLOOD Trace-Intact (Negative); CLARITY Cloudy (Clear); COLOR Yellow (Yellow); GLUCOSE 3+ (Negative); KETONE Negative (Negative); LEUKO ESTERASE 2+ (Negative); NITRITE Negative (Negative); SPECIFIC GRAVITY 1.015 (1.001-1.030); URINE CREATININE RANDOM 67.8 mg/dL; UROBILINOGEN 0.2 E.U./dl (0.0-1.0)
[2021-06-20 12:28] LABS: RBC 16-20 rbc/hpf (0-2); WBC TNTC wbc/hpf (0-5)
[2021-06-20 12:29] LABS: BACTERIA 4+; EPITHELIAL CELLS 41-50
[2021-06-20 12:36] LABS: POTASSIUM 4.6 mmol/L (3.5-5.1)
[2021-06-20 12:46] LABS: ALBUMIN 3.2 gm/dl (3.1-4.5); CREATININE 1.6 mg/dL (0.55-1.02)
== END | disposition home or self-care (01) ==
LOC: LAB 00:35 → US 11:00
PROVIDERS: ATTEND Internal Medicine Nephrology
DX: N17.9 Acute kidney failure, unspecified (principal); N25.81 Secondary hyperparathyroidism of renal origin

== ENCOUNTER 2022-12-25 01:30 | Emergency (ER) | payer OTHER ==
[~2022-12-25] VITALS: Wt 107.0 kg
[2022-12-25 03:36] VITALS: BP 105/40
== END 2022-12-25 04:01 | disposition home or self-care (01) ==
LOC: ED 01:30
DX: M17.12 Unilateral primary osteoarthritis, left knee (principal); M79.662 Pain in left lower leg; Z88.0 Allergy status to penicillin; Z90.710 Acquired absence of both cervix and uterus; Z90.89 Acquired absence of other organs; Z98.890 Other specified postprocedural states; Z87.891 Personal history of nicotine dependence

== ENCOUNTER → 2025-08-28 | Outpatient (CLI) | payer MEDICAID ==
[2025-08-28 09:47] LABS: BILIRUBIN 1+ (Negative); BLOOD 2+ (Negative); CLARITY Turbid (Clear); COLOR Red (Yellow); KETONE Negative (Negative); LEUKO ESTERASE 3+ (Negative); NITRITE Positive (Negative); PH 6.5 (4.5-8.0); SPECIFIC GRAVITY 1.015 (1.001-1.030); UROBILINOGEN 0.2 E.U./dl (0.0-1.0)
[2025-08-28 11:13] LABS: BACTERIA 4+; RBC TNTC rbc/hpf (0-2); WBC TNTC wbc/hpf (0-5)
== END | disposition home or self-care (01) ==
LOC: LAB 09:02
PROVIDERS: ATTEND Nurse Practitioner Family
DX: N39.0 Urinary tract infection, site not specified (principal)